=== PATIENT | male | born 1940 | race Caucasian/White ===

== ENCOUNTER 2024-11-26 08:13 | Inpatient (IN) | payer MEDICARE ==
[~2024-11-26] VITALS: Ht 180.3 cm; Wt 82.6 kg
[2024-11-26] VITALS (25 sets, daily range): BP systolic 104–151; BP diastolic 50–92; PULSE 86–113; RESP 18–20; TEMP 97.7–98.1; O2SAT 96–100
[~2024-11-26 08:13] MED LIST: AEC81 PO; CEPH500C2 PO; DICY10CA2 PO; DILT120C95 PO; FAMO40TA7 PO
[2024-11-26] MEDS: cefTRIAXone 1G VIAL IVPB ONE (08:43)
[2024-11-26] MEDS: [UNRECOGNIZED DRUG - OTHER] IV ONE (08:43)
[2024-11-26] MEDS: cefTRIAXone 1G VIAL ONE (08:52)
--- NOTE | 2024-11-26 08:58 | ERN ---
General Chief Complaint: Pelvic Pain Stated Complaint: ABD PAIN Time Seen by MD: 08:17 Source: patient History of Present Illness Initial Comments Patient is an 84-year-old gentleman coming in to be evaluated for lower abdominal pain and fever. Per patient these symptoms began a couple of days ago progressively getting worse. He states that the pain is now generalized through out his abdomen but he does noticed dysuria when he urinates. Allergies: Coded Allergies: No Known Allergies (Unverified Allergy, Unknown, 01/25/24) Home Meds Active Scripts Famotidine (Famotidine) 40 Mg Tablet, 40 MG PO DAILYDINNER, #30 TAB 0 Refills Prov:NICOLA MAGANA INSURANCE COLLECTOR 01/27/24 Dicyclomine HCl (Dicyclomine HCl) 10 Mg Capsule, 20 MG PO TIDP PRN for ABDOMINAL PAIN, #15 CAP 0 Refills Prov:NICOLA MAGANA APRN 01/27/24 Cephalexin (Cephalexin) 500 Mg Capsule, 500 MG PO BID, #6 CAP 0 Refills Prov:NICOLA MAGANA APRN 01/27/24 Reported Medications Diltiazem HCl (Diltiazem 24Hr Cd) 120 Mg Cap.er.24h, 120 MG PO AM, CAPSULE.DR 01/25/24 Aspirin (ASPIRIN 81 MG ECTAB) 81 Mg Ectab, 81 MG PO DAILY, TAB.EC 01/25/24 Past Medical History Past Medical History: A-Fib, Kidney Stone Past Surgical History: Other Surgical History Other: BACK SX ROS Dictation CONSTITUTIONAL: No chills, no fever, no weakness, no diaphoresis, no malaise. HEAD/FACE: No signs of trauma. EENT: No eye pain, no blurred vision, no tearing, no double vision, no ear pain, no ear discharge, no nose pain, no nasal congestion, no throat pain, no throat swelling, no mouth pain. RESPIRATORY: No cough, no orthopnea, no SOB, no stridor, no wheezing. CARDIOVASCULAR: No chest pain, no edema, no palpitations, no syncope. GASTROINTESTINAL/ABDOMINAL: No abdominal pain, no constipation, no diarrhea, no nausea, no vomiting. GENITOURINARY: No abnormal discharge, no dysuria, no frequent urination, no hematuria. No complaints of pain in the genitals. MUSCULOSKELETAL: No back pain, no gout, no joint pain, no joint swelling, no muscle pain, no muscle stiffness, no neck pain. INTEGUMENTARY: No change in color, no change in hair/nails, no dryness, no lesion, no lumps, no rash. NEUROLOGICAL/PSYCH: No anxiety, not depressed, no emotional problem, no headache, no numbness, no pre-existing deficit, no history of seizures, no tremors, no weakness. HEMATOLOGIC/LYMPHATIC: Not anemic, no history of blood clots, no apparent bleeding, no bruising, glands not swollen. All Systems Negative, Except as Noted. Physical Exam Physical Exam Dictation VITAL SIGNS: Reviewed. GENERAL APPEARANCE: Alert, oriented x3, no acute distress, obese. HEAD AND FACE: Non-traumatic. EYES: PERRL, pink conjunctivas, eyelid no trauma, anterior chamber clear. EARS: Pinnas intact and no signs of trauma or erythema. Ear canals clear and no discharge. TMs no erythema. NOSE: No discharge, no bleeding. OROPHARYNX: Mouth normal, teeth no caries, tongue pink. Pharynx clear, no erythema. Tonsils no exudates, no abscesses noted. Mucous membrane moist. NECK: Supple, non-tender, no thyromegaly, no masses, no JVD, no bruits. BREAST: Deferred. CHEST: No tenderness, no crepitus, no paradoxical movement, no retractions. LUNGS: Clear, well-ventilated, symmetric, no rales, no wheezing, no rhonchi, no stridor, good breath sounds bilaterally. HEART: Regular rate, regular rhythm, no murmur, no gallops. VASCULAR: No peripheral edema. ABDOMEN: Soft, positive bowel sounds, nondistended, no guarding, nontender, no rebound, no masses no hepatomegaly, no splenomegaly, no Ovalle's sign, no hernias. RECTAL: Deferred. GENITAL: Deferred. NEUROLOGICAL: Normal speech, gross motor function intact, gross sensory function intact. MUSCULOSKELETAL: Neck nontender, full range of motion, back nontender, full range of motion. EXTREMITIES: Nontender, full range of motion. SKIN: Color pink, dry, no turgor, no rash, no lacerations, no abrasions, no contusions. LYMPHATICS: Deferred. Results Laboratory and Microbiology Lab and Micro Result Laboratory Tests Test 11/26/24 08:41 White Blood Count 18.6 K/uL (4.8-10.8) H Red Blood Count 5.39 MIL/uL (4.50-6.20) Hemoglobin 16.5 g/dL (14.0-18.0) Hematocrit 49.1 % (42-54) Mean Corpuscular Volume 91.1 fL (79-99) Mean Corpuscular Hemoglobin 30.6 pg (27.0-33.0) Mean Corpuscular Hemoglobin Concent 33.6 g/dL (32.0-36.0) Red Cell Distribution Width 14.0 % (11.0-15.5) Platelet Count 224 K/uL (130-400) Mean Platelet Volume 11.2 fL (7.5-10.5) H Immature Granulocyte % (Auto) 0.6 % (0-1) Neutrophils (%) (Auto) 91.9 % (40.0-77.0) H Lymphocytes (%) (Auto) 3.4 % (21.0-51.0) L Monocytes (%) (Auto) 3.7 % (3.0-13.0) Eosinophils (%) (Auto) 0.1 % (0.0-8.0) Basophils (%) (Auto) 0.3 % (0.0-5.0) Neutrophils # (Auto) 17.1 K/uL (1.8-7.7) H Lymphocytes # (Auto) 0.6 K/uL (1.0-4.8) L Monocytes # (Auto) 0.7 K/uL (0.1-1.0) Eosinophils # (Auto) 0.01 K/uL (0.00-0.70) Basophils # (Auto) 0.05 K/uL (0.00-0.20) Absolute Immature Granulocyte (auto 0.11 K/uL (0-1) Segmented Neutrophils % 65 % (40-70) Band Neutrophils % 25 % (0-2) H Lymphocytes % (Manual) 6 % (22-44) L Monocytes % (Manual) 4 % (2-9) Nucleated Red Blood Cells 0.0 % (0.0-0.19) Differential Comment MANUAL DIFFERENTIAL White Cell Morphology Comment CONSISTENT W/DIFF Platelet Morphology Comment ADEQUATE Red Blood Cell Morphology NORMAL Prothrombin Time 12.0 SEC (9.6-11.6) H Prothromb Time International Ratio 1.08 (0.85-1.15) Activated Partial Thromboplast Time 28.2 SEC (26.3-35.5) Sodium Level 134 mmol/L (136-145) L Potassium Level 4.6 mmol/L (3.5-5.1) Chloride Level 98 mmol/L (101-111) L Carbon Dioxide Level 26 mmol/L (21-32) Blood Urea Nitrogen 16 mg/dL (7-18) Creatinine 1.5 mg/dL (0.5-1.3) H Glomerular Filtration Rate Calc 46 mL/min (>90) Random Glucose 124 mg/dL (70-105) H Lactic Acid Level 3.7 mmol/L (0.8-2.5) H Total Calcium 9.4 mg/dL (8.5-10.1) Total Creatine Kinase 60 U/L (21-232) Troponin I High Sensitivity 9 ng/L (4-75) Labs Reviewed?: Yes EKG/XRAY/US/CT/MRI EKG Comment 11/26/2024 time 8:28 a.m. Ventricular rate [address] wave elevation or depression CT Scan Comment [place] [id number] [place] [id number] IMAGING REPORT Signed PATIENT: REYES PENA MR#: [id number] : 1940 SEX: M AGE: 84 LOCATION: [facility] ORDER STATUS: REG ER REPORT#: [id number] SERVICE [id number] REASON: SEPSIS ORDERING PHYSICIAN: NOE MONTIEL MD PROCEDURE: ABD PEL WO - CT ABDOMEN/PELVIS W/O CONTRAST Exam Type: CT ABDOMEN/PELVIS W/O CONTRAST Clinical Information: SEPSIS Comparison: None CT Dose Index (CTDI): 10.20 mGy Dose Length Product (DLP): 530.00 total mGy-cm PROTOCOL: Routine noncontrast helical scanning of the abdomen and pelvis was performed at 5mm collimation. Findings: No evidence of nephro or ureterolithiasis is found. No hydronephrosis or ureteral dilatation is seen. The lung bases are clear. The stomach is unremarkable. It shows no wall thickening. No gross ulceration is seen. It is not overly distended. There are no surrounding inflammatory changes. No wall lesions are identified to suggest cancer. The spleen is unremarkable. It is not enlarged. The pancreas shows normal anatomy. It is not fatty replaced. It shows no lesions. The pancreatic duct is not dilated. There is evidence of cholelithiasis. No evidence of acute or chronic inflammation is seen. There is trace ascites. The adrenal glands are unremarkable. There is no enlargement. No lesions are noted. The liver is unremarkable. It shows no focal masses. The appendix is distended and there are surrounding inflammatory changes and the possibility of acute appendicitis cannot be excluded. The small bowel is unremarkable. There is no evidence of dilatation to suggest obstruction. No evidence of adynamic ileus is seen. There is no small bowel wall thickening to suggest enteritis. The colon is unremarkable. The urinary bladder is unremarkable. There is no wall thickening to suggest tumor or inflammation. There are no intraluminal calculi. There are no diverticula. There is no evidence of chronic bladder outlet obstruction. There is no evidence of urinary bladder distention to suggest urinary retention. The other pelvic structures are unremarkable. The bony and vascular structures are unremarkable for the patient's age. IMPRESSION: The appendix is distended and there are surrounding inflammatory changes and the possibility of acute appendicitis cannot be excluded. This study was performed using dose reduction techniques to include automated exposure control and/or adjustment of the mA and/or kV according to patient size. DICTATED BY: JUSTICE HOFFMAN MD DATE: 11/26/24922 ELECTRONICALLY SIGNED BY: JUSTICE HOFFMAN MD DATE: 11/26/24928 [facility] MDM: Differential diagnosis: Sepsis, appendicitis, abdominal pain, history of AFib, Rationale: Tests considered and ordered secondary to shared decision making include: labs, ECG and radiology Previous outside records reviewed: Old ER visits. Risk of complication and/or morbidity or mortality of patient management: None Medications-Per medication reconciliation Need for hospitalization: Patient does meet criteria for hospitalization. Need for emergency major/minor surgery: yes There are no social concerns with this patient. Prescription drug management Prescriptions will include symptomatic care Patient's prior external medical records from other ER visits were reviewed by me as indicated. Prior testing and results from previous visits were reviewed. Prior tests were taken into account with medical decision making and resource utilization, independent historian/historians were used to obtain complete medical history. I independently interpreted the test that were performed, results were reviewed by me and considered findings on radiology if ordered. Medical management and examination interpretation discussions were had by me with other qualified healthcare professionals as indicated for the patient's care. Patient is a 84-year-old gentleman coming in to be evaluated for abdominal pain. On physical exam patient has generalized abdominal tenderness, vital signs set off sepsis alert due to tachycardia and febrile. Laboratory workup confirms sepsis CT of the abdomen confirms appendicitis. Patient will be admitted under the care of hospitalist group Dr Tam accepting for ongoing management and surgeon Dr. Cruz today and it was consulted for surgical evaluation ED Course Orders Procedure Category Date Status Time Cbc With Differential LAB 11/26/24 Complete 08:19 Prothrombin Time With LAB 11/26/24 Complete INR 08:39 Partial LAB 11/26/24 Complete Thromboplastin Time 08:39 Blood Cult GILL 11/26/24 In Process 08:39 Urinalysis Profile LAB 11/26/24 Logged 08:39 Culture Urine GILL 11/26/24 Logged 08:39 0.9%Nacl 1000ml (Ns PHA 11/26/24 In Process 1000ml) 09:00 Creatine Kinase, Total LAB 11/26/24 Complete 08:39 Troponin I High LAB 11/26/24 Complete Sensitivity 08:39 Lactic Acid LAB 11/26/24 Complete 08:39 Ceftriaxone 1g Vial PHA 11/26/24 Complete (Rocephine 1g Inj) 09:00 Basic Metabolic Panel LAB 11/26/24 Complete 08:39 Ct Abdomen/Pelvis W/O CT 11/26/24 Resulted Contrast 08:39 Ceftriaxone 1g Vial PHA 11/26/24 Complete (Rocephine 1g Inj) 08:42 Zosyn 3.375gm+Ns 50ml PHA 11/26/24 In Process (Zosyn 3.375gm+Ns 10:00 Manual Differential LAB 11/26/24 Complete 08:41 Morphine 2mg Syg PHA 11/26/24 In Process (Morphine 2mg Syg) 10:00 Current Medications Medications (Trade) Dose Ordered Sig/Bob Route PRN Reason Start Time Stop Time Status Last Admin Dose Admin Ceftriaxone Sodium (ROCEphine 1G INJ) 1 gm ONCE ONCE IVPB 11/26/24 09:00 11/26/24 09:01 DC 11/26/24 08:43 Ceftriaxone Sodium (ROCEphine 1G INJ) 1 gm STK-MED ONCE .ROUTE 11/26/24 08:42 11/26/24 08:42 DC Morphine Sulfate (morPHINE 2MG SYG) 2 mg ONCE ONCE IVP 11/26/24 10:00 11/26/24 10:01 Piperacillin Sod/ Tazobactam Sod (Zosyn 3.375gm+NS 50ml) 3.375 gm ONCE ONCE IV 11/26/24 10:00 11/26/24 10:01 11/26/24 09:48 Sodium Chloride 2,478 ml @ 826 mls/hr ONCE ONCE IV 11/26/24 09:00 11/26/24 11:59 11/26/24 08:43 Vital Signs Date Time Temp Pulse Resp B/P (MAP) Pulse Ox O2 Delivery O2 Flow Rate FiO2 11/26/24 08:49 100.6 123 24 145/93 98 Room Air* 0 21 11/26/24 08:15 100.6 125 19 128/94 97 Room Air 0 Critical Care Note Comments Critical Care Procedure Note Authorized and Performed by: Total critical care time: Approximately 36 minutes Due to a high probability of clinically significant, life threatening deterioration, the patient required my highest level of preparedness to intervene emergently and I personally spent this critical care time directly and personally managing the patient. This critical care time included obtaining a history; examining the patient; pulse oximetry; ordering and review of studies; arranging urgent treatment with development of a management plan; evaluation of patient's response to treatment; frequent reassessment; and, discussions with other providers. This critical care time was performed to assess and manage the high probability of imminent, life-threatening deterioration that could result in multi-organ failure. It was exclusive of separately billable procedures and treating other patients and teaching time. Please see MDM section and the rest of the note for further information on patient assessment and treatment. DX & DISP Disposition: Inpatient Decision to Admit Time: 09:59 Departure Impression: Primary Impression: Sepsis Additional Impression: Acute appendicitis Condition: Stable Referrals: NONE (PCP) NOE MONTIEL MD Nov 26, 2024 08:58
[2024-11-26 09:00] LABS: BASOPHILS # (AUTO) 0.05 K/uL (0.00-0.20); BASOPHILS % (AUTO) 0.3 % (0.0-5.0); EOSINOPHILS # (AUTO) 0.01 K/uL (0.00-0.70); EOSINOPHILS % (AUTO) 0.1 % (0.0-8.0); HEMATOCRIT 49.1 % (42-54); IMMATURE GRANULOCYTE ABSOLUTE 0.11 K/uL (0-1); LYMPHOCYTES # (AUTO) 0.6 K/uL (1.0-4.8); LYMPHOCYTES % (AUTO) 3.4 % (21.0-51.0); MEAN CORPUSCULAR HEMOGLOBIN 30.6 pg (27.0-33.0); MEAN CORPUSCULAR HGB CONC 33.6 g/dL (32.0-36.0); MEAN CORPUSCULAR VOLUME 91.1 fL (79-99); MONOCYTES # (AUTO) 0.7 K/uL (0.1-1.0); MONOCYTES % (AUTO) 3.7 % (3.0-13.0); NEUTROPHILS # (AUTO) 17.1 K/uL (1.8-7.7); NEUTROPHILS % (AUTO) 91.9 % (40.0-77.0); PLATELET COUNT (AUTO) 224 K/uL (130-400); RED BLOOD CELL COUNT(AUTO) 5.39 MIL/uL (4.50-6.20); WHITE BLOOD COUNT (AUTO) 18.6 K/uL (4.8-10.8)
[2024-11-26 09:04] LABS: CREATININE 1.5 mg/dL (0.5-1.3); POTASSIUM 4.6 mmol/L (3.5-5.1)
[2024-11-26 09:06] LABS: INR 1.08 (0.85-1.15)
[2024-11-26 09:08] LABS: PARTIAL THROMBOPLASTIN TIME 28.2 SEC (26.3-35.5)
--- NOTE | 2024-11-26 09:29 | HMCIMG ---
Exam Type: CT ABDOMEN/PELVIS W/O CONTRAST Clinical Information: SEPSIS Comparison: None CT Dose Index (CTDI): 10.20 mGy Dose Length Product (DLP): 530.00 total mGy-cm PROTOCOL: Routine noncontrast helical scanning of the abdomen and pelvis was performed at 5mm collimation. Findings: No evidence of nephro or ureterolithiasis is found. No hydronephrosis or ureteral dilatation is seen. The lung bases are clear. The stomach is unremarkable. It shows no wall thickening. No gross ulceration is seen. It is not overly distended. There are no surrounding inflammatory changes. No wall lesions are identified to suggest cancer. The spleen is unremarkable. It is not enlarged. The pancreas shows normal anatomy. It is not fatty replaced. It shows no lesions. The pancreatic duct is not dilated. There is evidence of cholelithiasis. No evidence of acute or chronic inflammation is seen. There is trace ascites. The adrenal glands are unremarkable. There is no enlargement. No lesions are noted. The liver is unremarkable. It shows no focal masses. The appendix is distended and there are surrounding inflammatory changes and the possibility of acute appendicitis cannot be excluded. The small bowel is unremarkable. There is no evidence of dilatation to suggest obstruction. No evidence of adynamic ileus is seen. There is no small bowel wall thickening to suggest enteritis. The colon is unremarkable. The urinary bladder is unremarkable. There is no wall thickening to suggest tumor or inflammation. There are no intraluminal calculi. There are no diverticula. There is no evidence of chronic bladder outlet obstruction. There is no evidence of urinary bladder distention to suggest urinary retention. The other pelvic structures are unremarkable. The bony and vascular structures are unremarkable for the patient's age. IMPRESSION: The appendix is distended and there are surrounding inflammatory changes and the possibility of acute appendicitis cannot be excluded. This study was performed using dose reduction techniques to include automated exposure control and/or adjustment of the mA and/or kV according to patient size.
[2024-11-26] MEDS: ZOSYN 3.375GM +NS 50ML IV ONE (09:48)
[2024-11-26 09:54] LABS: BAND NEUTROPHILS % (MANUAL) 25 % (0-2); LYMPHOCYTES % (MANUAL) 6 % (22-44); MAN.DIFF COMMENT-IMPRESSION MANUAL DIFFERENTIAL; MONOCYTES % (MANUAL) 4 % (2-9); PLATELET MORPHOLOGY COMMENT ADEQUATE; SEGMENTED NEUTROPHILS % 65 % (40-70); TOTAL CELLS COUNTED 100; WBC MORPHOLOGY CONSISTENT W/DIFF
[2024-11-26] MEDS: morPHINE 2 MG SYG IVP ONE (10:11)
[2024-11-26 10:26] LABS: APPEARANCE,URINE CLEAR (CLEAR); BILIRUBIN,URINE NEGATIVE (NEGATIVE); COLOR,URINE LIGHT-YELLOW (YELLOW); GLUCOSE, URINE (UA) NEGATIVE (NEGATIVE); KETONES,URINE 5 mg/dL (NEGATIVE); LEUKOCYTE ESTERASE ,URINE NEGATIVE Leu/uL (NEGATIVE); NITRATE,URINE NEGATIVE (NEGATIVE); OCCULT BLOOD,URINE NEGATIVE (NEGATIVE); PH,URINE 6.5 (5.0-8.0); PROTEIN,URINE 30 mg/dL (NEGATIVE); UROBILINOGEN,URINE 0.2 mg/dL (0.2-1.0)
[2024-11-26 10:27] LABS: ADD UA MICROSCOPIC YES
[2024-11-26 10:28] LABS: MUCUS,URINE RARE LPF (None Seen); WBC,URINE 0-1 /HPF (0-1)
[2024-11-26] MEDS ORDERED: morPHINE 2 MG SYG IVP PRN (10:30)
--- NOTE | 2024-11-26 10:35 | HP ---
[facility] PHYS[facility] Date of Service: Nov 26, 2024 Time of Service: 10:35 HISTORY OF PRESENT ILLNESS: Date of service: 11/26/2024 This 84-year-old male with past medical history of atrial fibrillation who presented to the hospital secondary to abdominal pain. Patient states he is having generalized abdominal pain which started yesterday. Pain was localized in the right lower quadrant and left lower and would radiate towards his groin. He felt nauseated but denied any emesis. He has not been eating secondary to pain since yesterday. He also complains of fever, chills at home. Denied any chest pain, palpitations, falls syncopal episode. Patient states he only takes diltiazem for atrial fibrillation and has been taking aspirin at home. He denies taking Eliquis or any other blood thinners at home. He has not seen a solutions architect in a few years. He states he is otherwise active and denies any chest pain with exertion. Labs were notable for white count of 18.6, hemoglobin was 16.5, platelet count was 224 K, sodium was 134, potassium was 4.6, creatinine was 1.5, glucose was 124, troponin was negative, lactic acid was 3.[address] abdomen pelvis which showed the appendix which was noted to be distended. There was surrounding inflammatory changes with possibility of appendicitis not excluded. On presentation to the ED patient's temperature was 100.6, heart rate was 125, blood pressure was 128/94 REVIEW OF SYSTEMS CONSTITUTIONAL: Positive for fever, chills. Denied any night sweats. NEUROLOGICAL: Denies headache, amaurosis fugax, motor weakness, sensory deficit, vertigo/spinning sensation, gait abnormalities, or tremors. ENT: No hearing loss, otalgia, otorrhea, rhinitis, rhinorrhea, hoarseness, or sore throat. CARDIOVASCULAR: Denies any exertional angina, dyspnea on exertion, orthopnea, paroxysmal nocturnal dyspnea, palpitations, life-threatening arrhythmias, claudication. PULMONARY: Denies any shortness of breath, cough, phlegm/sputum, hemoptysis, pleuritic chest pain. SLEEP: Denies morning headaches, daytime somnolence or napping. Denies difficulty falling asleep, staying asleep, waking from sleep. Denies knowledge of snoring. GASTROINTESTINAL: Positive for abdominal pain, nausea. Denied any vomiting, diarrhea, constipation GENITOURINARY: Denies frequency, urgency, nocturia, hematuria or incontinence (Storage/Irritative symptoms.) Low urinary stream, straining to void, urinary intermittency or hesitancy, splitting of the voiding stream, terminal dribbling. ENDOCRINOLOGIC: Denies polyuria, polydipsia, polyphagia or heat/cold intolerances. HEMATOLOGIC: Denies thrombophilia/previous clots, or coagulopathy/bleeding disorders. ONCOLOGIC: Denies personal history of malignancy. DERMATOLOGIC: Denies rashes or pruritus. PSYCHIATRIC: Denies any suicidal or homicidal ideation. Denies hallucinations. PAST MEDICAL HISTORY: History of atrial fibrillation PAST SURGICAL HISTORY: History of back surgery PAST SOCIAL HISTORY: Denied any smoking, alcohol, drug use FAMILY HISTORY: Has a history of atrial fibrillation in the family. Coded Allergies: No Known Allergies (Unverified Allergy, Unknown, 01/25/24) PHYSICAL EXAM GENERAL APPEARANCE: The patient is awake, alert, and oriented, in no acute cardiopulmonary distress. NEUROLOGICAL: Cranial nerves II-XII grossly intact. Motor is 5/5 in bilateral upper and lower extremities proximal to distal. No sensory deficits. HEENT: Face is symmetric. Pupils are equal and reactive. Extraocular movements are intact. NECK: Supple. No JVD. No thyromegaly. No submental, submandibular, pre- /postauricular, occipital or supraclavicular lymphadenopathy. CHEST: Normal chest expansion. No Telemetry. LUNGS: Absence of any rales, rhonchi or any wheezing. CARDIOVASCULAR: Regular. S1 and S2 normal. No appreciable rubs, murmurs or gallops. ABDOMEN: Soft, patient is severely tender in the right lower quadrant, guarding present. No rebound noted : Deferred. No Chinchilla. EXTREMITIES: Non-edematous and not cyanotic. No clubbing. Good capillary refill. SKIN: No skin breakdown. Vital Sign (Last 24 Hours) 11/26/24 08:49 Temp 100.6 Pulse 123 Resp 24 B/P (MAP) 145/93 Pulse Ox 98 O2 Delivery Room Air* O2 Flow Rate 0 FiO2 21 LABS: Laboratory: Test 11/26/24 10:18 11/26/24 08:41 Range/Units Urine Color LIGHT-YELLOW YELLOW Urine Appearance CLEAR CLEAR Urine pH 6.5 5.0-8.0 Urine Specific Slick 1.015 1.001-1.031 Urine Protein 30 H NEGATIVE mg/dL Urine Glucose (UA) NEGATIVE NEGATIVE mg/dL Urine Ketones 5 H NEGATIVE mg/dL Urine Occult Blood NEGATIVE NEGATIVE Urine Nitrate NEGATIVE NEGATIVE Urine Bilirubin NEGATIVE NEGATIVE mg/dL Urine Urobilinogen 0.2 0.2-1.0 mg/dL Urine Leukocyte Esterase NEGATIVE NEGATIVE Gabriel/uL Urine RBC 2-5 H 0-1 /HPF Urine WBC 0-1 0-1 /HPF Urine Bacteria None None Seen /HPF White Blood Count 18.6 H 4.8-10.8 K/uL Red Blood Count 5.39 4.50-6.20 MIL/uL Hemoglobin 16.5 14.0-18.0 g/dL Hematocrit 49.1 42-54 % Mean Corpuscular Volume 91.1 79-99 fL Mean Corpuscular Hemoglobin 30.6 27.0-33.0 pg Mean Corpuscular Hemoglobin Concent 33.6 32.0-36.0 g/dL Red Cell Distribution Width 14.0 11.0-15.5 % Platelet Count 224 130-400 K/uL Mean Platelet Volume 11.2 H 7.5-10.5 fL Immature Granulocyte % (Auto) 0.6 0-1 % Neutrophils (%) (Auto) 91.9 H 40.0-77.0 % Lymphocytes (%) (Auto) 3.4 L 21.0-51.0 % Monocytes (%) (Auto) 3.7 3.0-13.0 % Eosinophils (%) (Auto) 0.1 0.0-8.0 % Basophils (%) (Auto) 0.3 0.0-5.0 % Neutrophils # (Auto) 17.1 H 1.8-7.7 K/uL Lymphocytes # (Auto) 0.6 L 1.0-4.8 K/uL Monocytes # (Auto) 0.7 0.1-1.0 K/uL Eosinophils # (Auto) 0.01 0.00-0.70 K/uL Basophils # (Auto) 0.05 0.00-0.20 K/uL Absolute Immature Granulocyte (auto 0.11 0-1 K/uL Segmented Neutrophils % 65 40-70 % Band Neutrophils % 25 H 0-2 % Lymphocytes % (Manual) 6 L 22-44 % Monocytes % (Manual) 4 2-9 % Nucleated Red Blood Cells 0.0 0.0-0.19 % Differential Comment MANUAL DIFFERENTIAL White Cell Morphology Comment CONSISTENT W/DIFF Platelet Morphology Comment ADEQUATE Red Blood Cell Morphology NORMAL Prothrombin Time 12.0 H 9.6-11.6 SEC Prothromb Time International Ratio 1.08 0.85-1.15 Activated Partial Thromboplast Time 28.2 26.3-35.5 SEC Sodium Level 134 L 136-145 mmol/L Potassium Level 4.6 3.5-5.1 mmol/L Chloride Level 98 L 101-111 mmol/L Carbon Dioxide Level 26 21-32 mmol/L Blood Urea Nitrogen 16 7-18 mg/dL Creatinine 1.5 H 0.5-1.3 mg/dL Glomerular Filtration Rate Calc 46 >90 mL/min Random Glucose 124 H 70-105 mg/dL Lactic Acid Level 3.7 H 0.8-2.5 mmol/L Total Calcium 9.4 8.5-10.1 mg/dL Total Creatine Kinase 60 21-232 U/L Troponin I High Sensitivity 9 4-75 ng/L DIAGNOSTICS / RADIOLOGY: [ ] ASSESSMENT: Suspected acute appendicitis POA Sepsis secondary to appendicitis Atrial fibrillation with RVR not on anticoagulation (only takes aspirin) History of BPH Acute kidney injury likely prerenal Lactic acidosis PLAN: - admit patient to med [facility] with telemetry -in reference to suspected acute appendicitis. Patient will be NPO for now. We will start patient on Zosyn and IV fluids. We will request consultation with General surgery -in reference to atrial fibrillation. Patient noted to be in RVR in setting of sepsis. We will request consultation with Cardiology. Patient will be NPO for now -trend lactic acid versus. Check TSH, A1c, procaine, CRP -further orders per hospitalization course. Advanced Care Planning Which of the following were discussed: Hospice care: Yes __ No _x_ Therapeutic options: Yes __ No __ Advance directives: Yes __ No __ Other discussions: Pt is full code Discussed with who?: patient (Patient, family or surrogates) Voluntary nature of this service was explained to the patient? Yes _x_ No __ Amount of time spent: 25 minutes PETER Jonas MD, MD Nov 26, 2024 10:35
--- NOTE | 2024-11-26 10:37 | NUR ---
GEN SURG: DR MONTIEL GAVE PATIENT REPORT TO DR SHERIDAN
--- NOTE | 2024-11-26 10:37 | NUR ---
CARDIO CONSULT: DR NAVA GAVE PATIENT TO DR REBOLLEDO
[2024-11-26] MEDS: 0.9%NACL 1000ML 1,000 ML IV SCH ×2 (11:07→18:19)
[2024-11-26 11:17] LABS: HEMOGLOBIN A1C 5.6 % (4.0-6.0)
[2024-11-26 11:34] LABS: THYROID STIMULATING HORMONE 0.92 uIU/mL (0.36-3.74)
[2024-11-26 11:48] LABS: CREATININE,URINE RANDOM 96.47 mg/dL (30-135)
--- NOTE | 2024-11-26 12:30 | HMCIMG ---
Exam Type: CHEST 1VW Clinical Information: preop Comparison: None Findings: The lungs are clear of infiltrates. The heart is normal in size. The bony and soft tissue structures of the chest are unremarkable. Impression: Clear lungs.
--- NOTE | 2024-11-26 12:41 | NUR ---
TO OR AT THIS TIME
[2024-11-26] MEDS ORDERED: ondanSETRON 4MG INJ ONE (12:54)
[2024-11-26] MEDS ORDERED: rocuRONium bROMide 10MG/1ML 5ML VL ONE (12:54)
[2024-11-26] MEDS ORDERED: proPOFol 10 MG/ML 20ML VIAL IV ONE (12:54)
[2024-11-26] MEDS ORDERED: SUCCINYLCHOLINE CHLORIDE 20 MG/ML 10 ML VIAL ONE (12:55)
[2024-11-26] MEDS ORDERED: FENTanyl CITRate PF 50 MCG/1 ML 2ML VIAL ONE ×2 (12:55→14:17)
--- NOTE | 2024-11-26 12:57 | CONS ---
GENERAL SURGERY CONSULTATION NOTE DATE OF CONSULTATION: Nov 26, 2024 TIME OF CONSULTATION: 12:53 CONSULTING SERVICE: Arvin Vigil MD REQUESTING PHYSICAIN: [ ] REASON FOR CONSULTATION: [ ] Abdominal pain Acute appendicitis HISTORY OF PRESENT ILLNESS: [ ] 84-year-old man who presented with abdominal pain Came claim pain has been on and off for about a month now He has a history of kidney stones and initially thought this was what was causing the pain There was nausea and vomiting and also some slight fever denied any diarrhea or constipation PAST MEDICAL HISTORY: [ ] AFib PAST SURGICAL HISTORY: [ ] Spine surgery FAMILY HISTORY: [ ] No family history of hypertension or diabetes SOCIAL HISTORY: [ ] No smoking No alcohol Current Medications Medications (Trade) Dose Ordered Sig/Bob Route Start Time Stop Time Status Last Admin Dose Admin Famotidine (Pepcid 20mg Vial) 20 mg Q24H IV 11/26/24 21:00 12/26/24 20:59 Piperacillin Sod/ Tazobactam Sod (Zosyn 3.375gm+NS 50ml) 3.375 gm Q8H IVPB 11/26/24 18:00 12/06/24 17:59 Sodium Chloride 1,000 ml @ 125 mls/hr Q8H IV 11/26/24 10:30 12/26/24 10:29 11/26/24 11:07 125 MLS/HR Sodium Chloride (NS 50ml) 50 ml AD IV 11/26/24 16:00 11/26/24 10:39 DC Allergies: Coded Allergies: No Known Allergies (Unverified Allergy, Unknown, 01/25/24) REVIEW OF SYSTEMS: DITCH TENDER: [Denies headaches or blurring of vision.] RESP: [No cough, chest pain or SOB.] CVS: [No palpitaions.] GI: [abdominal pain with nausea and vomiting, no diarrhea or constipation.] VALARIE: [No dysuria or hematuria.] Musculoskeletal: [No swelling or joint pain.] BACK: [No pain or swelling.] All other systems are reviewed and essentially negative pertinent positives in HPI. PHYSICAL EXAMINATION: GENERAL: [Patient is lying comfortably in bed, not in any obvious distress.] HEAD: [Normal with no signs of head trauma.] EYES: [Not pale not jaundiced afebrile to touch.] ENT: [ Normal.] NECK: [Supple,no tenderness,no lymphadenopathy,no masses,no thyromegaly ,no bruits, no JVD.] LUNGS: [Clear breath sounds bilaterally. No wheezes, rales, or rhonchi.] HEART: [Regular rate and rhythm. Normal S1 and S2, without murmurs, rub or gallop.] VASC: [No edema. Peripheral pulses normal and equal in all extremities.] ABD: [Bowel sounds present,soft, generalized tenderness, no masses, no organomegaly.] : [Normal, no suprapubic tenderness.] LYMPH: [No lymphadenopathy noted.] EXT: [ Warm soft, non tender.] SKIN: [ No rashes or lesions.] NEURO: [ Awake Alert and oriented x3.] Vital Signs (last 8hr) Date Time Temp Pulse Resp B/P (MAP) Pulse Ox O2 Delivery O2 Flow Rate FiO2 11/26/24 11:06 98.6 110 22 133/87 96 Room Air* 0 21 11/26/24 08:49 100.6 123 24 145/93 98 Room Air* 0 21 11/26/24 08:15 100.6 125 19 128/94 97 Room Air 0 LABORATORY: [ ] Hematology Labs: Test 11/26/24 08:41 Range/Units White Blood Count 18.6 H 4.8-10.8 K/uL Red Blood Count 5.39 4.50-6.20 MIL/uL Hemoglobin 16.5 14.0-18.0 g/dL Hematocrit 49.1 42-54 % Mean Corpuscular Volume 91.1 79-99 fL Mean Corpuscular Hemoglobin 30.6 27.0-33.0 pg Mean Corpuscular Hemoglobin Concent 33.6 32.0-36.0 g/dL Red Cell Distribution Width 14.0 11.0-15.5 % Platelet Count 224 130-400 K/uL Mean Platelet Volume 11.2 H 7.5-10.5 fL Immature Granulocyte % (Auto) 0.6 0-1 % Neutrophils (%) (Auto) 91.9 H 40.0-77.0 % Lymphocytes (%) (Auto) 3.4 L 21.0-51.0 % Monocytes (%) (Auto) 3.7 3.0-13.0 % Eosinophils (%) (Auto) 0.1 0.0-8.0 % Basophils (%) (Auto) 0.3 0.0-5.0 % Neutrophils # (Auto) 17.1 H 1.8-7.7 K/uL Lymphocytes # (Auto) 0.6 L 1.0-4.8 K/uL Monocytes # (Auto) 0.7 0.1-1.0 K/uL Eosinophils # (Auto) 0.01 0.00-0.70 K/uL Basophils # (Auto) 0.05 0.00-0.20 K/uL Absolute Immature Granulocyte (auto 0.11 0-1 K/uL Segmented Neutrophils % 65 40-70 % Band Neutrophils % 25 H 0-2 % Lymphocytes % (Manual) 6 L 22-44 % Monocytes % (Manual) 4 2-9 % Nucleated Red Blood Cells 0.0 0.0-0.19 % Differential Comment MANUAL DIFFERENTIAL White Cell Morphology Comment CONSISTENT W/DIFF Platelet Morphology Comment ADEQUATE Red Blood Cell Morphology NORMAL Chemistry Labs: Test 11/26/24 10:48 11/26/24 08:41 Range/Units Hemoglobin A1c 5.6 4.0-6.0 % Estimated Average Glucose (eAG) 114 70-126 mg/dL Lactic Acid Level 3.8 H 0.8-2.5 mmol/L C-Reactive Protein, Quantitative 155.60 H 0.5-3.0 mg/L Procalcitonin 2.56 H 0.05-0.5 ng/mL Thyroid Stimulating Hormone (TSH) 0.92 0.36-3.74 uIU/mL Sodium Level 134 L 136-145 mmol/L Potassium Level 4.6 3.5-5.1 mmol/L Chloride Level 98 L 101-111 mmol/L Carbon Dioxide Level 26 21-32 mmol/L Blood Urea Nitrogen 16 7-18 mg/dL Creatinine 1.5 H 0.5-1.3 mg/dL Glomerular Filtration Rate Calc 46 >90 mL/min Random Glucose 124 H 70-105 mg/dL Total Calcium 9.4 8.5-10.1 mg/dL Total Creatine Kinase 60 21-232 U/L Troponin I High Sensitivity 9 4-75 ng/L Coagulation Labs: Test 11/26/24 08:41 Range/Units Prothrombin Time 12.0 H 9.6-11.6 SEC Prothromb Time International Ratio 1.08 0.85-1.15 Activated Partial Thromboplast Time 28.2 26.3-35.5 SEC DIAGNOSTICS / RADIOLOGY: [Copy/Paste Echos/Imaging Report here] ASSESSMENT: [] Acute appendicitis PLAN: [] NPO/IVF/IV ANTIOBIOTICS Schedule for OR We talked about various treatment options including but not limited to surgery. We talked about risks and benefits of surgery, patient verbalized understanding has agreed to proceed [ ]. We will schedule [laparoscopic appendectomy possible open ]. ARVIN VIGIL MD Nov 26, 2024 12:57
[2024-11-26] MEDS ORDERED: ceFAZolin SODIUM 1 GM VIAL ONE ×2 (13:01→13:54)
[2024-11-26] MEDS ORDERED: BUPIvacaine/PF 0.25% 30ML VIAL IJ ONE (13:01)
[2024-11-26] MEDS ORDERED: LIDOCAINE 1%-EPI 1:100,000 20 ML VIAL ONE (13:01)
[2024-11-26] MEDS: LIDOCAINE 1%-EPI 1:100,000 20 ML VIAL IJ ONE (13:12)
[2024-11-26] MEDS ORDERED: acetaMINOPHEN 100 ML ONE (14:04)
[2024-11-26] MEDS ORDERED: NEOSTIGMINE METHYLSULFATE 1MG/ML IV ONE (14:11)
[2024-11-26] MEDS ORDERED: GLYCOPYRROLATE 0.2 MG/ML 5 ML VIAL ONE (14:11)
[2024-11-26] MEDS ORDERED: SUGAMMADEX SODIUM 200 MG/2 ML VIAL IV ONE (14:26)
--- NOTE | 2024-11-26 14:31 | OP ---
OPERATIVE NOTE: DATE OF SERVICE: 11/26/2024 PREOPERATIVE DIAGNOSIS: Acute appendicitis. POSTOPERATIVE DIAGNOSIS: Acute perforated gangrenous appendicitis PROCEDURE PERFORMED: Laparoscopic appendectomy. SURGEON: Anthony Vigil MD ANESTHESIA: General. ESTIMATED BLOOD LOSS: Minimal. FINDINGS: Acutely inflamed elongated gangrenous appendix. Peritonitis SPECIMEN REMOVED: Appendix. Drain #1 7 mm GUERRERO COMPLICATIONS: None. DESCRIPTION OF PROCEDURE: The patient was brought into the Operating Room. After proper identification, the patient was placed on the operating table in the supine position. General anesthesia was then administered and the patient was endotracheally intubated. Attention was then focussed in the area of the abdomen. The same was prepped and draped in the usual sterile fashion. An appropriate time-out was then carried out at this point. Then, I proceeded by making a supraumbilical incision. The incision was carried through skin and subcutaneous tissue till the fascia was identified. Fascia was then carefully incised. Stay stitches were placed on either side of the fascia and the Bhargav port was then introduced. The CO2 was then insufflated into the abdomen and the laparoscope was then introduced. Inspection of the abdomen showed evidence of right lower quadrant inflammation and elongated inflamed Perforated appendix. There was free fluid in the abdomen So, at this point, I proceeded by placing 2 additional ports, one in the suprapubic region and one in the left lower quadrant. The patient was then placed in Trendelenburg position and rotated to his left. The appendix was then grasped it was noted to be elongated and gangrenous and the attachment of the appendix to the lateral wall was then taken down using the Harmonic scalpel. Once this was done, the mesoappendix was then opened and the appendiceal vessels were then taken using the vascular load of the Endo BOYD. The appendix itself was then taken from the base of the cecum using the tissue load of the Endo BOYD. The specimen was then delivered using an Endopouch. Copious amount of irrigation was carried out at this point. Hemostasis was noted to be adequate. I then placed a 7 mm Arie-Moseley drain in the right lower quadrant in the usual way Then I proceeded by closing the wound. Ports were withdrawn under vision. CO2 was let out of the abdomen and the supraumbilical fascia was approximated together using 0 Vicryl [id number] stitches and the skin was approximated together using skin liam and sterile dressings were then applied. Instrument and sponges count were found to be correct x2. The patient was then woken up, extubated and taken to Recovery Room in stable condition. The patient tolerated the procedure well. ANTHONY VIGIL MD Nov 26, 2024 14:31
[2024-11-26] MEDS ORDERED: 0.9%NACL 50ML IV SCH (16:00)
--- NOTE | 2024-11-26 17:53 | EKG ---
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
[2024-11-26] MEDS: ZOSYN 3.375GM +NS 50ML IVPB SCH (18:08)
[2024-11-26] MEDS ORDERED: hydroMORPHone 0.5 MG SYG (0.5MG/0.5ML) IVP PRN (18:30)
[2024-11-26] MEDS ORDERED: acetaMINOPHEN 325 MG TAB PO PRN (18:30)
[2024-11-26] MEDS ORDERED: oxyCODONE/aceTAMIN 5/325MG TAB PO ONE (18:30)
[2024-11-26] MEDS ORDERED: ondanSETRON 4MG INJ IVP PRN (18:30)
[2024-11-26] MEDS: FAMOTIDINE 20MG VIAL IV SCH (21:37)
[2024-11-27] VITALS (7 sets, daily range): BP systolic 111–151; BP diastolic 66–84; PULSE 77–105; RESP 18–20; TEMP 97.7–98.1; O2SAT 97
[2024-11-27 04:45] LABS: BASOPHILS # (AUTO) 0.04 K/uL (0.00-0.20); BASOPHILS % (AUTO) 0.3 % (0.0-5.0); HEMATOCRIT 41.4 % (42-54); IMMATURE GRANULOCYTE ABSOLUTE 0.09 K/uL (0-1); LYMPHOCYTES # (AUTO) 0.9 K/uL (1.0-4.8); LYMPHOCYTES % (AUTO) 6.1 % (21.0-51.0); MEAN CORPUSCULAR HEMOGLOBIN 29.8 pg (27.0-33.0); MEAN CORPUSCULAR HGB CONC 32.1 g/dL (32.0-36.0); MEAN CORPUSCULAR VOLUME 92.6 fL (79-99); MONOCYTES # (AUTO) 0.5 K/uL (0.1-1.0); MONOCYTES % (AUTO) 3.4 % (3.0-13.0); NEUTROPHILS # (AUTO) 13.8 K/uL (1.8-7.7); NEUTROPHILS % (AUTO) 89.6 % (40.0-77.0); PLATELET COUNT (AUTO) 174 K/uL (130-400); RED BLOOD CELL COUNT(AUTO) 4.47 MIL/uL (4.50-6.20); RED CELL DISTRIBUTION WIDTH 14.5 % (11.0-15.5); WHITE BLOOD COUNT (AUTO) 15.4 K/uL (4.8-10.8)
--- NOTE | 2024-11-27 04:58 | CONS ---
CARDIOLOGY CONSULTATION HISTORY OF PRESENT ILLNESS: This is a very pleasant [place] from [facility]. He was in his usual state of health. He developed abdominal pain. He presented to the Emergency Room with abdominal pain, found to have appendicitis and has subsequently undergone successful surgery. His cardiac history is not remarkable for coronary disease, but he has had atrial fibrillation for the past 15 years. He is generally well controlled. He is fully active. He does everything he cares to do despite his age of 84. 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 He has no chest pain, no shortness of breath and enjoys an active lifestyle. He is a nonsmoker. He has a family history of longevity. There is no significant family history of coronary artery disease in his family. He has in reversion taken medications. He was told by his doctor he required anticoagulation, but refused and instead has been on aspirin for the past several years without incident. He is reluctant to consider a change in these medications. He is a bit groggy, but gives excellent history and currently has no symptoms of coronary artery disease. His heart rate is atrial fibrillation with controlled ventricular response. REVIEW OF SYSTEMS: Unremarkable for being healthy all of his life in atrial fibrillation without symptoms. PHYSICAL EXAMINATION: VITAL SIGNS: His blood pressure is 122/66. HEENT: Unremarkable. NECK: Shows jugular venous pulse at about 6. LUNGS: Distant, there are no crackles or wheezes. HEART: Also somewhat distant. It is relatively well controlled atrial fibrillation. There is no S3. There is no significant murmur. ABDOMEN: Status post appendectomy. EXTREMITIES: He has good distal pulses with no significant edema. IMAGING DATA: His electrocardiogram is nonischemic. He is in atrial fibrillation, currently with a controlled ventricular response. In addition, he is in atrial fibrillation with a rapid ventricular response. His chest x-ray is unremarkable. LABORATORY DATA: White count is 18.6, H and H is normal. His INR is 1. Hemoglobin A1c is 5.6. Lactic acid was 3.8 on arrival, is currently 3.9. Troponin is unremarkable. C-reactive protein is slightly high, TSH is 0.92. ASSESSMENT AND PLAN: Atrial fibrillation, was remarkably controlled in a remarkably spry and healthy 84-year-old gentleman. From a cardiac standpoint, there is no further recommendations. He will be observed over his hospitalization, an echocardiogram will be obtained and once again discussed with him anticoagulation; however, I suspect he would be reluctant to consider this therapy. Thank you for allowing me to participate in management of this gentleman. TID: [id number] RECEIPT: [id number]
[2024-11-27 05:15] LABS: CREATININE 1.3 mg/dL (0.5-1.3); POTASSIUM 4.3 mmol/L (3.5-5.1)
--- NOTE | 2024-11-27 09:28 | PN ---
[facility] PROGRESS NOTE Date of Service: Nov 27, 2024 Time of Service: 08:47 SUBJECTIVE: [ ] This is a 84-year-old male that underwent appendectomy findings gangrenous appendix GUERRERO drain. Patient is tolerating antibiotics encouraged to do deep breathing exercise reports discomfort to surgical sites. REVIEW OF SYSTEMS CONSTITUTIONAL: Positive for fever, chills. Denied any night sweats. NEUROLOGICAL: Denies headache, amaurosis fugax, motor weakness, sensory deficit, vertigo/spinning sensation, gait abnormalities, or tremors. ENT: No hearing loss, otalgia, otorrhea, rhinitis, rhinorrhea, hoarseness, or sore throat. CARDIOVASCULAR: Denies any exertional angina, dyspnea on exertion, orthopnea, paroxysmal nocturnal dyspnea, palpitations, life-threatening arrhythmias, claudi cation. PULMONARY: Denies any shortness of breath, cough, phlegm/sputum, hemoptysis, pleuritic chest pain. SLEEP: Denies morning headaches, daytime somnolence or napping. Denies difficulty falling asleep, staying asleep, waking from sleep. Denies knowledge of snoring. GASTROINTESTINAL: Positive for abdominal pain, nausea. Denied any vomiting, diarrhea, constipation GENITOURINARY: Denies frequency, urgency, nocturia, hematuria or incontinence (Storage/Irritative symptoms.) Low urinary stream, straining to void, urinary intermittency or hesitancy, splitting of the voiding stream, terminal dribbling. ENDOCRINOLOGIC: Denies polyuria, polydipsia, polyphagia or heat/cold intolerances. HEMATOLOGIC: Denies thrombophilia/previous clots, or coagulopathy/bleeding disorders. ONCOLOGIC: Denies personal history of malignancy. DERMATOLOGIC: Denies rashes or pruritus. PSYCHIATRIC: Denies any suicidal or homicidal ideation. Denies hallucinations. PHYSICAL EXAM GENERAL APPEARANCE: The patient is awake, alert, and oriented, in no acute cardiopulmonary distress. NEUROLOGICAL: Cranial nerves II-XII grossly intact. Motor is 5/5 in bilateral upper and lower extremities proximal to distal. No sensory deficits. HEENT: Face is symmetric. Pupils are equal and reactive. Extraocular movements are intact. NECK: Supple. No JVD. No thyromegaly. No submental, submandibular, pre- /postauricular, occipital or supraclavicular lymphadenopathy. CHEST: Normal chest expansion. No Telemetry. LUNGS: Absence of any rales, rhonchi or any wheezing. CARDIOVASCULAR: Regular. S1 and S2 normal. No appreciable rubs, murmurs or gallops. ABDOMEN: Soft, patient is severely tender in the right lower quadrant, guarding present. No rebound noted : Deferred. No Chinchilla. EXTREMITIES: Non-edematous and not cyanotic. No clubbing. Good capillary refill. SKIN: No skin breakdown. Vital Signs (last 8hr) Date Time Temp Pulse Resp B/P (MAP) Pulse Ox O2 Delivery O2 Flow Rate FiO2 11/27/24 03:57 98.1 105 19 121/74 93 Room Air LABS: Laboratory: Test 11/27/24 04:26 11/26/24 16:47 11/26/24 10:48 11/26/24 10:18 Range/Units White Blood Count 15.4 H 4.8-10.8 K/uL Red Blood Count 4.47 L 4.50-6.20 MIL/uL Hemoglobin 13.3 L 14.0-18.0 g/dL Hematocrit 41.4 L 42-54 % Mean Corpuscular Volume 92.6 79-99 fL Mean Corpuscular Hemoglobin 29.8 27.0-33.0 pg Mean Corpuscular Hemoglobin Concent 32.1 32.0-36.0 g/dL Red Cell Distribution Width 14.5 11.0-15.5 % Platelet Count 174 130-400 K/uL Mean Platelet Volume 11.2 H 7.5-10.5 fL Immature Granulocyte % (Auto) 0.6 0-1 % Neutrophils (%) (Auto) 89.6 H 40.0-77.0 % Lymphocytes (%) (Auto) 6.1 L 21.0-51.0 % Monocytes (%) (Auto) 3.4 3.0-13.0 % Eosinophils (%) (Auto) 0.0 0.0-8.0 % Basophils (%) (Auto) 0.3 0.0-5.0 % Neutrophils # (Auto) 13.8 H 1.8-7.7 K/uL Lymphocytes # (Auto) 0.9 L 1.0-4.8 K/uL Monocytes # (Auto) 0.5 0.1-1.0 K/uL Eosinophils # (Auto) 0.00 0.00-0.70 K/uL Basophils # (Auto) 0.04 0.00-0.20 K/uL Absolute Immature Granulocyte (auto 0.09 0-1 K/uL Nucleated Red Blood Cells 0.0 0.0-0.19 % Sodium Level 136 136-145 mmol/L Potassium Level 4.3 3.5-5.1 mmol/L Chloride Level 103 101-111 mmol/L Carbon Dioxide Level 27 21-32 mmol/L Blood Urea Nitrogen 16 7-18 mg/dL Creatinine 1.3 0.5-1.3 mg/dL Glomerular Filtration Rate Calc 55 >90 mL/min Random Glucose 92 70-105 mg/dL Total Calcium 8.6 8.5-10.1 mg/dL Lactic Acid Level 3.9 H 0.8-2.5 mmol/L Hemoglobin A1c 5.6 4.0-6.0 % Estimated Average Glucose (eAG) 114 70-126 mg/dL C-Reactive Protein, Quantitative 155.60 H 0.5-3.0 mg/L Procalcitonin 2.56 H 0.05-0.5 ng/mL Thyroid Stimulating Hormone (TSH) 0.92 0.36-3.74 uIU/mL Urine Color LIGHT-YELLOW YELLOW Urine Appearance CLEAR CLEAR Urine pH 6.5 5.0-8.0 Urine Specific Manson 1.015 1.001-1.031 Urine Protein 30 H NEGATIVE mg/dL Urine Glucose (UA) NEGATIVE NEGATIVE mg/dL Urine Ketones 5 H NEGATIVE mg/dL Urine Occult Blood NEGATIVE NEGATIVE Urine Nitrate NEGATIVE NEGATIVE Urine Bilirubin NEGATIVE NEGATIVE mg/dL Urine Urobilinogen 0.2 0.2-1.0 mg/dL Urine Leukocyte Esterase NEGATIVE NEGATIVE Gabriel/uL Urine RBC 2-5 H 0-1 /HPF Urine WBC 0-1 0-1 /HPF Urine Bacteria None None Seen /HPF Urine Random Creatinine 96.47 30-135 mg/dL Urine Random Sodium 85 40-220 mmol/l Test 11/26/24 08:41 Range/Units Segmented Neutrophils % 65 40-70 % Band Neutrophils % 25 H 0-2 % Lymphocytes % (Manual) 6 L 22-44 % Monocytes % (Manual) 4 2-9 % Differential Comment MANUAL DIFFERENTIAL White Cell Morphology Comment CONSISTENT W/DIFF Platelet Morphology Comment ADEQUATE Red Blood Cell Morphology NORMAL Prothrombin Time 12.0 H 9.6-11.6 SEC Prothromb Time International Ratio 1.08 0.85-1.15 Activated Partial Thromboplast Time 28.2 26.3-35.5 SEC Total Creatine Kinase 60 21-232 U/L Troponin I High Sensitivity 9 4-75 ng/L Current Medications Medications (Trade) Dose Ordered Sig/Bob Route PRN Reason Start Time Stop Time Status Last Admin Dose Admin Acetaminophen (TYLenol 325MG TAB) 650 mg Q6H PRN PO MILD PAIN (1-3) 11/26/24 18:30 12/26/24 18:29 Famotidine (Pepcid 20mg Vial) 20 mg Q24H IV 11/26/24 21:00 12/26/24 20:59 11/26/24 21:37 20 MG Hydromorphone HCl (DiLAUDid 0.5MG INJ) 0.5 mg Q3H3 PRN IVP SEVERE PAIN (7-10) 11/26/24 18:30 12/01/24 18:29 Morphine Sulfate (morPHINE 2MG SYG) 2 mg Q6H PRN IVP SEVERE PAIN (7-10) 11/26/24 10:30 12/03/24 10:29 Ondansetron HCl (zoFRAN 4MG INJ) 4 mg TIDP PRN IVP NAUSEA/VOMITING 11/26/24 18:30 12/26/24 18:29 Oxycodone/ Acetaminophen (perCOCET) 1 tab Q4HPRN PRN PO PAIN LEVEL 4 TO 6 11/26/24 18:30 12/03/24 18:29 Piperacillin Sod/ Tazobactam Sod (Zosyn 3.375gm+NS 50ml) 3.375 gm Q8H IVPB 11/26/24 18:00 12/06/24 17:59 11/27/24 03:58 3.375 GM Sodium Chloride 1,000 ml @ 100 mls/hr Q10H IV 11/26/24 18:30 12/26/24 18:29 11/26/24 18:19 100 MLS/HR Sodium Chloride 1,000 ml @ 125 mls/hr Q8H IV 11/26/24 10:30 11/26/24 18:08 DC 11/26/24 11:07 125 MLS/HR Sodium Chloride (NS 50ml) 50 ml AD IV 11/26/24 16:00 11/26/24 10:39 DC DIAGNOSTICS / RADIOLOGY: [ ] ASSESSMENT: Suspected acute appendicitis POA status post appendectomy gangrenous appendix. Sepsis secondary to appendicitis Atrial fibrillation with RVR not on anticoagulation (only takes aspirin). History of BPH Acute kidney injury likely prerenal Lactic acidosis PLAN: - admit patient to med surge with telemetry -in reference to suspected acute appendicitis. Status post appendectomy we will follow surgeon's postop recommendations Continues on Zosyn IV every8 hours Diet clear liquid diet atrial fibrillation. Restarted Cardizem XL 120 mg home med. Encouraged out of bed to chair with meals ambulation and IS usage Pain management for adequate pain control. Fall precautions All questions addressed -further orders per hospitalization course. ATTESTATION BY PHYSICIAN I have seen and examined the patient. I reviewed the documentation, medical decision making, and treatment plan as noted by the mid-level provider above. I agree with the findings and plan of care. NATHANIEL RAJPUT MD, ELIZABETH NP Nov 27, 2024 09:28
[2024-11-27] MEDS: dilTIAZem 120MG SR CAP PO SCH (09:36)
--- NOTE | 2024-11-27 17:43 | EKG ---
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 : 1940 Requested By: RASHEL BRAVO Order Number: [id number] Reading MD: Cholo Arredondo Measurements Intervals [place] Rate: 102 P: 0 [place]: 0 QRS: 61 QRSD: 82 T: -1 QT: 316 QTc: 411 Interpretive Statements Atrial fibrillation with rapid ventricular response with premature ventricular or aberrantly conducted complexes Abnormal QRS-T angle, consider primary T wave abnormality Compared to ECG 11/26/2024 08:28:53 T-wave abnormality now present Early repolarization no longer present Electronically Signed On 11-28-2024 18:17:59 FIELD OPERATIONS FARM MANAGER by Cholo Arredondo Please click the below link to view image of tracing.
[2024-11-27] MEDS: oxyCODONE/aceTAMIN 5/325MG TAB PO PRN (18:19)
--- NOTE | 2024-11-27 23:32 | PN ---
FOLLOWUP NOTE SUBJECTIVE: He is currently having some abdominal pain at the incisional site. He has also complained of some urinary issues and ____ beginning his stream. He has been lying flat in bed and I suspect that is the reason he is unable to attempt to stand to urinate. His electrocardiogram remains same. He has atrial fibrillation. PHYSICAL EXAMINATION: NECK: Shows no jugular venous distention. LUNGS: Somewhat distant, but there are no crackles or wheezes. HEART: Irregular regular. There is no S3. ABDOMEN: Status postop. There is some tenderness at the incisional site. However, his bladder does not appear to be distended. ASSESSMENT AND PLAN: From a cardiac standpoint, he is stable. We will continue to follow. The discussion of anticoagulants will be made once he recovers more. Currently, they are not indicated. TID: [id number] RECEIPT: [id number]
[2024-11-28] VITALS: BP 128/75; PULSE 100; RESP 20; TEMP 97.4
[2024-11-28 04:00] VITALS: BP 136/80; PULSE 86; RESP 20; TEMP 97.8
[2024-11-28 05:51] LABS: BASOPHILS # (AUTO) 0.03 K/uL (0.00-0.20); BASOPHILS % (AUTO) 0.2 % (0.0-5.0); EOSINOPHILS # (AUTO) 0.04 K/uL (0.00-0.70); EOSINOPHILS % (AUTO) 0.3 % (0.0-8.0); HEMATOCRIT 41.5 % (42-54); IMMATURE GRANULOCYTE ABSOLUTE 0.11 K/uL (0-1); LYMPHOCYTES # (AUTO) 0.9 K/uL (1.0-4.8); LYMPHOCYTES % (AUTO) 6.1 % (21.0-51.0); MEAN CORPUSCULAR HEMOGLOBIN 29.6 pg (27.0-33.0); MEAN CORPUSCULAR HGB CONC 32.3 g/dL (32.0-36.0); MEAN CORPUSCULAR VOLUME 91.6 fL (79-99); MONOCYTES # (AUTO) 0.7 K/uL (0.1-1.0); MONOCYTES % (AUTO) 5.2 % (3.0-13.0); NEUTROPHILS # (AUTO) 12.4 K/uL (1.8-7.7); NEUTROPHILS % (AUTO) 87.4 % (40.0-77.0); PLATELET COUNT (AUTO) 182 K/uL (130-400); RED BLOOD CELL COUNT(AUTO) 4.53 MIL/uL (4.50-6.20); RED CELL DISTRIBUTION WIDTH 14.3 % (11.0-15.5); WHITE BLOOD COUNT (AUTO) 14.1 K/uL (4.8-10.8)
[2024-11-28 06:14] LABS: CREATININE 1.1 mg/dL (0.5-1.3); POTASSIUM 3.9 mmol/L (3.5-5.1)
[2024-11-28 08:00] VITALS: BP 139/86; PULSE 92; RESP 20; TEMP 98.5; O2SAT 92
--- NOTE | 2024-11-28 10:33 | PN ---
GENERAL SURGERY PROGRESS NOTE DATE OF SERVICE: Nov 28, 2024 TIME OF SERVICE: 10:33 PROBLEM LISTS: [ ] INTERVAL HISTORY: [ ] PHYSICAL EXAMINATION: GENERAL: [Patient is lying comfortably in bed, not in any obvious distress.] HEAD: [Normal with no signs of head trauma.] EYES: [Not pale not jaundiced afebrile to touch.] ENT: [ Normal.] NECK: [Supple,no tenderness,no lymphadenopathy,no masses,no thyromegaly ,no bruits, no JVD.] LUNGS: [Clear breath sounds bilaterally. No wheezes, rales, or rhonchi.] HEART: [Regular rate and rhythm. Normal S1 and S2, without murmurs, rub or gallop.] VASC: [No edema. Peripheral pulses normal and equal in all extremities.] ABD: [Bowel sounds present,soft, generalized tenderness, no masses, no organomegaly.] : [Normal, no suprapubic tenderness.] LYMPH: [No lymphadenopathy noted.] EXT: [ Warm soft, non tender.] SKIN: [ No rashes or lesions.] NEURO: [ Awake Alert and oriented x3.] LABORATORY: [ ] Hematology Labs: Test 11/28/24 04:58 Range/Units White Blood Count 14.1 H 4.8-10.8 K/uL Red Blood Count 4.53 4.50-6.20 MIL/uL Hemoglobin 13.4 L 14.0-18.0 g/dL Hematocrit 41.5 L 42-54 % Mean Corpuscular Volume 91.6 79-99 fL Mean Corpuscular Hemoglobin 29.6 27.0-33.0 pg Mean Corpuscular Hemoglobin Concent 32.3 32.0-36.0 g/dL Red Cell Distribution Width 14.3 11.0-15.5 % Platelet Count 182 130-400 K/uL Mean Platelet Volume 11.2 H 7.5-10.5 fL Immature Granulocyte % (Auto) 0.8 0-1 % Neutrophils (%) (Auto) 87.4 H 40.0-77.0 % Lymphocytes (%) (Auto) 6.1 L 21.0-51.0 % Monocytes (%) (Auto) 5.2 3.0-13.0 % Eosinophils (%) (Auto) 0.3 0.0-8.0 % Basophils (%) (Auto) 0.2 0.0-5.0 % Neutrophils # (Auto) 12.4 H 1.8-7.7 K/uL Lymphocytes # (Auto) 0.9 L 1.0-4.8 K/uL Monocytes # (Auto) 0.7 0.1-1.0 K/uL Eosinophils # (Auto) 0.04 0.00-0.70 K/uL Basophils # (Auto) 0.03 0.00-0.20 K/uL Absolute Immature Granulocyte (auto 0.11 0-1 K/uL Nucleated Red Blood Cells 0.0 0.0-0.19 % Chemistry Labs: Test 11/28/24 04:58 11/26/24 16:47 11/26/24 10:48 Range/Units Sodium Level 140 136-145 mmol/L Potassium Level 3.9 3.5-5.1 mmol/L Chloride Level 105 101-111 mmol/L Carbon Dioxide Level 27 21-32 mmol/L Blood Urea Nitrogen 19 H 7-18 mg/dL Creatinine 1.1 0.5-1.3 mg/dL Glomerular Filtration Rate Calc 67 >90 mL/min Random Glucose 91 70-105 mg/dL Total Calcium 9.1 8.5-10.1 mg/dL Lactic Acid Level 3.9 H 0.8-2.5 mmol/L Hemoglobin A1c 5.6 4.0-6.0 % Estimated Average Glucose (eAG) 114 70-126 mg/dL C-Reactive Protein, Quantitative 155.60 H 0.5-3.0 mg/L Procalcitonin 2.56 H 0.05-0.5 ng/mL Thyroid Stimulating Hormone (TSH) 0.92 0.36-3.74 uIU/mL DIAGNOSTICS / RADIOLOGY: [Copy/Paste Echos/Imaging Report here] ASSESSMENT: [] Acute appendicitis PLAN: [] NPO/IVF/IV ANTIOBIOTICS Schedule for OR We talked about various treatment options including but not limited to surgery. We talked about risks and benefits of surgery, patient verbalized understanding has agreed to proceed [ ]. We will schedule [laparoscopic appendectomy possible open ]. ARVIN VARELA MD Nov 28, 2024 10:33
--- NOTE | 2024-11-28 10:35 | DS ---
Discharge Summary Hospital Course Summary: This 84-year-old male with past medical history of atrial fibrillation who presented to the hospital secondary to abdominal pain. Patient states he is having generalized abdominal pain which started yesterday. Pain was localized in the right lower quadrant and left lower and would radiate towards his groin. He felt nauseated but denied any emesis. He has not been eating secondary to pain since yesterday. He also complains of fever, chills at home. Denied any chest pain, palpitations, falls syncopal episode. Patient states he only takes diltiazem for atrial fibrillation and has been taking aspirin at home. He denies taking Eliquis or any other blood thinners at home. He has not seen a chemistry quality control technician in a few years. He states he is otherwise active and denies any chest pain with exertion. During the course of stay patient was seen by chemistry quality control technician's. Patient was cleared for surgery patient underwent a appendectomy finding gangrenous. Patient recuperating well tolerating diet bowel function present. No nausea no vomiting. Patient will be discharged on antibiotics prescription was written by surgeon [id number] p.o. b.i.d. for14 days pain medication Tylenol No. 3 as directed, bowel regimen MiraLax. He will follow with Dr. phillips currently on no anticoagulant therapy we will discuss on follow-up appointment. Patient will continue diltiazem for atrial fibrillation for rate control. Patient is clinically stable for discharged [employer] Professional(s): Imaging REASON: SEPSIS ORDERING PHYSICIAN: NOE MONTIEL MD PROCEDURE: ABD PEL WO - CT ABDOMEN/PELVIS W/O CONTRAST Exam Type: CT ABDOMEN/PELVIS W/O CONTRAST Clinical Information: SEPSIS Comparison: None CT Dose Index (CTDI): 10.20 mGy Dose Length Product (DLP): 530.00 total mGy-cm PROTOCOL: Routine noncontrast helical scanning of the abdomen and pelvis was performed at 5mm collimation. Findings: No evidence of nephro or ureterolithiasis is found. No hydronephrosis or ureteral dilatation is seen. The lung bases are clear. The stomach is unremarkable. It shows no wall thickening. No gross ulceration is seen. It is not overly distended. There are no surrounding inflammatory changes. No wall lesions are identified to suggest cancer. The spleen is unremarkable. It is not enlarged. The pancreas shows normal anatomy. It is not fatty replaced. It shows no lesions. The pancreatic duct is not dilated. There is evidence of cholelithiasis. No evidence of acute or chronic inflammation is seen. There is trace ascites. The adrenal glands are unremarkable. There is no enlargement. No lesions are noted. The liver is unremarkable. It shows no focal masses. The appendix is distended and there are surrounding inflammatory changes and the possibility of acute appendicitis cannot be excluded. The small bowel is unremarkable. There is no evidence of dilatation to suggest obstruction. No evidence of adynamic ileus is seen. There is no small bowel wall thickening to suggest enteritis. The colon is unremarkable. The urinary bladder is unremarkable. There is no wall thickening to suggest tumor or inflammation. There are no intraluminal calculi. There are no diverticula. There is no evidence of chronic bladder outlet obstruction. There is no evidence of urinary bladder distention to suggest urinary retention. The other pelvic structures are unremarkable. The bony and vascular structures are unremarkable for the patient's age. IMPRESSION: The appendix is distended and there are surrounding inflammatory changes and the possibility of acute appendicitis cannot be excluded. Procedure(s): OPERATIVE NOTE: DATE OF SERVICE: 11/26/2024 PREOPERATIVE DIAGNOSIS: Acute appendicitis. POSTOPERATIVE DIAGNOSIS: Acute perforated gangrenous appendicitis PROCEDURE PERFORMED: Laparoscopic appendectomy. SURGEON: Anthony Varela MD ANESTHESIA: General. ESTIMATED BLOOD LOSS: Minimal. FINDINGS: Acutely inflamed elongated gangrenous appendix. Peritonitis SPECIMEN REMOVED: Appendix. Drain #1 7 mm GUERRERO COMPLICATIONS: None. DESCRIPTION OF PROCEDURE: The patient was brought into the Operating Room. After proper identification, the patient was placed on the operating table in the supine position. General anesthesia was then administered and the patient was endotracheally intubated. Attention was then focussed in the area of the abdomen. The same was prepped and draped in the usual sterile fashion. An appropriate time-out was then carried out at this point. Then, I proceeded by making a supraumbilical incision. The incision was carried through skin and subcutaneous tissue till the fascia was identified. Fascia was then carefully incised. Stay stitches were placed on either side of the fascia and the Bhargav port was then introduced. The CO2 was then insufflated into the abdomen and the laparoscope was then introduced. Inspection of the abdomen showed evidence of right lower quadrant inflammation and elongated inflamed Perforated appendix. There was free fluid in the abdomen So, at this point, I proceeded by placing 2 additional ports, one in the suprapubic region and one in the left lower quadrant. The patient was then placed in Trendelenburg position and rotated to his left. The appendix was then grasped it was noted to be elongated and gangrenous and the attachment of the appendix to the lateral wall was then taken down using the Harmonic scalpel. Once this was done, the mesoappendix was then opened and the appendiceal vessels were then taken using the vascular load of the Endo BOYD. The appendix itself was then taken from the base of the cecum using the tissue load of the Endo BOYD. The specimen was then delivered using an Endopouch. Copious amount of irrigation was carried out at this point. Hemostasis was noted to be adequate. I then placed a 7 mm Arie-Moseley drain in the right lower quadrant in the usual way Then I proceeded by closing the wound. Ports were withdrawn under vision. CO2 was let out of the abdomen and the supraumbilical fascia was approximated together using 0 Vicryl [id number] stitches and the skin was approximated together using skin s taples and sterile dressings were then applied. Instrument and sponges count were found to be correct x2. The patient was then woken up, extubated and taken to Recovery Room in stable condition. The patient tolerated the procedure well. ANTHONY VARELA MD Assessment/Plan: Discharged dx's; Suspected acute appendicitis POA status post appendectomy gangrenous appendix. Sepsis secondary to appendicitis discharged on oral antibiotics for14 days Augmentin 875/125 mg twice a day Atrial fibrillation with RVR not on anticoagulation (only takes aspirin). History of BPH Acute kidney injury likely prerenal improved Lactic acidosis PLAN: ADMISSION DATE: DISCHARGE DATE: 01/26/2025 DISPOSITION: Home CONDITION: Stable INCLUSION SPECIAL EDUCATOR(S): Network Announcer's FOLLOW UP APPOINTMENT(S): PCP 2-3 days chemistry quality control technician's Dr. Phillips one-week discussion of anticoagulate we will be made once he is recovered PROCEDURES: Appendectomy IMAGING (S) report attached to summary : MICROBIOLOGY: report attached to summary; ACTIVITY: HOME MEDICATIONS CHANGES ON HOME MEDICATIONS NEW MEDICATIONS TEACHING: Emergency instructions: The patient was instructed to present to the nearest Emergency Department or call 911 should their symptoms return or worsen. Home Medications: Active Scripts Famotidine (Famotidine) 40 Mg Tablet, 40 MG PO DAILYDINNER, #30 TAB 0 Refills Prov:NICOLA MAGANA RELEASE SPECIALIST 01/27/24 Dicyclomine HCl (Dicyclomine HCl) 10 Mg Capsule, 20 MG PO TIDP PRN for ABDOMINAL PAIN, #15 CAP 0 Refills Prov:IZZYNICOLA Henry RELEASE SPECIALIST 01/27/24 Cephalexin (Cephalexin) 500 Mg Capsule, 500 MG PO BID, #6 CAP 0 Refills Prov:NICOLA MAGANA RELEASE SPECIALIST 01/27/24 Reported Medications Diltiazem HCl (Diltiazem 24Hr Cd) 120 Mg Cap.er.24h, 120 MG PO AM, CAPSULE. 01/25/24 Aspirin (ASPIRIN 81 MG ECTAB) 81 Mg Ectab, 81 MG PO DAILY, TAB.EC 01/25/24 Continued Medications: Aspirin (Aspirin 81 Mg Ectab) 81 Mg Ectab 81 MG PO DAILY, TAB.EC Cephalexin (Cephalexin) 500 Mg Capsule 500 MG PO BID, #6 CAP 0 Refills Dicyclomine HCl (Dicyclomine HCl) 10 Mg Capsule 20 MG PO TIDP PRN for ABDOMINAL PAIN, #15 CAP 0 Refills Diltiazem HCl (Diltiazem 24Hr Cd) 120 Mg Cap.er.24h 120 MG PO AM, CAPSULE. Famotidine (Famotidine) 40 Mg Tablet 40 MG PO DAILYDINNER, #30 TAB 0 Refills Time spent arranging discharge: 31-60 minutes ATTESTATION BY PHYSICIAN I have seen and examined the patient. I reviewed the documentation, medical decision making, and treatment plan as noted by the mid-level provider above. I agree with the findings and plan of care. NATHANIEL RAJPUT MD, ELIZABETH NP Nov 28, 2024 10:35
[2024-11-28 11:45] VITALS: BP 103/55; PULSE 97; RESP 20; TEMP 98.3
--- NOTE | 2024-11-28 13:30 | NUR ---
DCP Pt awake, alert, oriented x3 [place] called [place]. Pt reports being indepedent. Has a daughter named Vandana Champagne [phone] if needed. Pt does not have any medical equipment and anticipates discharge is for home. Addendum: 11/28/24 at 1334 by ALCON SAGASTUME RN CM Amended: Links added.
[2024-11-28 16:00] VITALS: BP 123/84; PULSE 73; RESP 20; TEMP 98.9
--- NOTE | 2024-11-28 17:36 | HMCSR ---
APPROVED REPORT EXAM: Two-dimensional and M-mode echocardiogram with Doppler and color Doppler. INDICATION ICD: Atrial fibrillation 2D Dimensions RVDd3.8 cmLVEF(%)59.0 (>50%)LVED Vol(simp.)64.4 mL IVSd0.8 (0.7-1.1cm)FS(%)31 %LVES Vol(simp.)28.3 mL LVDd4.2 (3.8-5.6cm)LA (2D)4.9 (1.6-4.0cm)LVEF(%, simp.)56 % PWd1.1 (0.7-1.1cm)Ao Root(2D)2.9 (2.0-3.7cm)LA ESV INDEX (4CH)45.30 mL/m2 IVSs1.0 cmLVOT diam1.9 (1.8-2.4cm)LA ESV INDEX (2CH)43.80 mL/m2 LVDs2.9 (2.5-4.0cm) PWs1.5 cm Deformation Strain Apical 418.0 % Apical 212.0 % Apical 316.0 % Global Aigzjq25.0 % M-Mode Dimensions EPSS0.8 cm LA (MM)5.1 (1.6-4.0cm) Ao Root(MM)3.2 (2.0-3.7cm) Aortic Valve AoV VTI0.3 mAo Mean GR6.0 mmHgLVOT VTI0.14 m ZACHARY (VMAX)1.4 cm2AVA (VTI) 1.4 cm2 Mitral Valve MV E Vmax84.4 cm/sDECEL Xoux099 ms MR Max PG22 mmHgP 1/2 T44 ms MVA (PHT)5.0 cm2 TDI E/E' Medial8.7E/E' Lateral5.8 Medial E' Peak V9.70 cm/sLateral E' Peak V14.50 cm/s Pulmonary Valve PV Vmax1.1 m/s PV Peak GR4.5 mmHg Tricuspid Valve TR Vmax2.5 m/s TR Peak GR25.5 mmHg Left Ventricle The left ventricle is normal size. GLS -15.0%. There is normal left ventricular wall thickness. The L VEF is > 55%. The left ventricular diastolic function is normal. Right Ventricle The right ventricle is normal size. The right ventricular systolic function is normal. Atria The left atrium is moderately dilated. The right atrium is moderately dilated. Aortic Valve Aortic valve is trileaflet and opens well. Aortic valve leaflets are thickened and calcified. Trace o f aortic regurgitation is present. There is no aortic valvular stenosis. Mitral Valve The mitral valve is normal in structure. There is no mitral valve regurgitation noted. There is no mi tral valve stenosis. Tricuspid Valve The tricuspid valve is normal in structure. There is trace of tricuspid valve regurgitation noted. Pulmonic Valve The pulmonary valve is normal in structure. There is no pulmonic valvular regurgitation. Great Vessels The aortic root is normal in size. The IVC is normal in size and collapses >50% with inspiration. Pericardium There is no pericardial effusion. Other Information Quality : Adequate Conclusion The left ventricle is normal size. There is normal left ventricular wall thickness. The LVEF is > 55%. The right atrium is moderately dilated. Aortic valve is trileaflet and opens well. Aortic valve leaflets are thickened and calcified. Trace of aortic regurgitation is present. Trace of aortic regurgitation is present. There is trace of tricuspid valve regurgitation noted. There is no pericardial effusion.
--- NOTE | 2024-11-28 17:55 | NUR ---
PATIENT DISCHARGED HOME ID BAND AND IV REMOVED. DISCHARGE INSTRUCTIONS EXPLAINED AND GIVEN TO PATIENT. PROVIDED TEACHING FOR GUERRERO DRAIN CARE. SHOWED PATIENT HOW TO CARE AND EMPTY OUT GUERRERO DRAIN. PATIENT DID VERBALIZED UNDERSTANDING AND DID PROVIDE TEACH BACK AND DEMONSTRATED THE STEPS. ANSWERED ANY QUESTIONS AND CONCERNS PATIENT HAD. BELONGINGS PACKED AND TAKEN BY PATIENT. WHEELED DOWN TO PRIVATE CAR.
== END 2024-11-28 18:00 | disposition home or self-care (01) | DRG 853 ==
LOC: EDH 08:13 → EDHIP 10:00 → 4CH 15:24
PROVIDERS: ADMIT Internal Medicine; ATTEND Internal Medicine
PROC: 0DTJ4ZZ Resection of Appendix, Percutaneous Endoscopic Approach (ICD-10-PCS; principal; 2024-11-26 13:02)
DX: A41.9 Sepsis, unspecified organism (principal); K35.32 Acute appendicitis with perforation, localized peritonitis, and gangrene, without abscess; E87.20 Acidosis, unspecified; N17.9 Acute kidney failure, unspecified; I48.91 Unspecified atrial fibrillation; N40.0 Benign prostatic hyperplasia without lower urinary tract symptoms; Z87.442 Personal history of urinary calculi; Z79.899 Other long term (current) drug therapy; Z79.82 Long term (current) use of aspirin
CPT/HCPCS: 36415; 71045; 74176; 80048; 81001; 82550; 82570; 83036; 83605; 84145; 84300; 84443; 84484; 85025; 85610; 85730; 86140; 86850; 86900; 86901; 87040; 87086; 93005; 93306; 93356; A4344; A4450; G0378; J0330; J0690; J0696; J2270; J2405; J2543; J2704; J2710; J3010; J3490; J7030; A4649; A4930; C1769; J0665